=== PATIENT | male | born 1990 | race Caucasian/White ===

== ENCOUNTER 2023-12-06 08:18 | Emergency (ER) | payer BC, SELFPAY ==
--- NOTE | ~2023-12-06 | XR_ITS ---
EXAMINATION: XR ribs LT 2V DATE: 12/06/2023 08:56 INDICATION: Anterolateral left rib pain post injury TECHNIQUE: 3 views of the left ribs were obtained. COMPARISON: None FINDINGS: No rib fractures identified. Visualized portions of the lungs are clear with no airspace opacities, p ulmonary edema, pleural effusion or pneumothorax. The lateral right lung is excluded from the field-o f-view. Heart size is normal. IMPRESSION: 1. No rib fracture or acute cardiopulmonary disease. Reviewed, dictated and finalized at location A.
[2023-12-06 08:24] VITALS: BP 126/87; PULSE 75; RESP 16; TEMP 37.1; O2SAT 99
--- NOTE | 2023-12-06 08:52 | ED.GENADULT ---
HPI - General Adult General Chief complaint: Back Pain/Injury Stated complaint: Rib pain/injury Time Seen by Provider: 12/06/23 08:38 Source: patient, RN notes reviewed and old records reviewed Mode of arrival: ambulatory Limitations: no limitations History of Present Illness HPI narrative: 33 year old male who presents to [facility] care with complaints of left rib pain since attending martial arts class on Saturday and was hit in the ribs. Patient reports increased pain with deep breathing on the left rib area and with certain twisting movement. Patient reports that he has taking Ibuprofen for his discomfort.Patient reports no shortness of breath lung sounds noted all lung alvarado. MD complaint: rib pain Onset (ago): day(s) (2 days) Severity scale (1-10): 8 Treatments prior to arrival: NSAID Related Data Home Medications Medication Instructions Recorded Confirmed No Home Medications 12/06/23 12/06/23 Allergies Allergy/AdvReac Type Severity Reaction Status Date / Time No Known Allergies Allergy Verified 12/06/23 08:34 Review of Systems Review of Systems: CONSTITUTIONAL: Denies fever, chills, or sweats. EYES: Denies visual changes, redness, or discharge. ENT: Denies rhinorrhea, congestion, sore throat, or otalgia. CARDIOVASCULAR: Denies chest pain, palpitations, or edema.Reports left sided rib pain RESPIRATORY: Denies cough or dyspnea.states hurts some to take a deep breath GASTROINTESTINAL: Denies abdominal pain, nausea, vomiting, or diarrhea. GENITOURINARY: Denies dysuria or hematuria. SKIN: Denies rash or itching.small area of bruising to anterior left rib area MUSCULOSKELETAL: Denies back pain, joint pain, or myalgia..left anterior and lateral rib discomfort NEUROLOGIC: Denies headache, numbness, or weakness PSYCHIATRIC: Denies anxiety or depression. All systems reviewed & are unremarkable except as noted in HPI and below PMFSH Comments At time of signature, agree with nursing past medical, surgical, social and family history. There is no relevant family history pertinent to the presenting complaint Exam Narrative: GENERAL: Well-appearing, well-nourished, and in no acute distress. HEAD: Normocephalic, atraumatic. EYES: PERRLA and EOMI. ENT: Nares clear, no rhinorrhea or epistaxis. Mucous membranes moist. NECK: Supple.no lymphadenopathy CHEST: Clear to auscultation. No respiratory distress. lung sounds in all alvarado, reports some increased pain to left anterior rib area with deep breathing, no tachypnea,SAO2 99% on room air HEART: Regular rate and rhythm. No murmur heard. Normal peripheral pulses. ABDOMEN: Soft, nontender, nondistended, normal active bowel sounds. EXTREMITIES: Normal range of motion. No edema. SKIN: Warm, dry, no rash. small area of bruising to anterior left rib area. NEURO: No focal deficits. Alert and oriented x3. Course Course Emergency Course: Patient is aware of diagnosis, understands and agrees to treatment plan.? Anticipatory guidance given.? Patient agrees to follow-up as directed and is aware of reasons to seek care at the emergency department. Portions of this record may have been created with voice recognition software Level of Care: Express Care Visit Vital Signs Vital signs: Vital Signs Temperature 37.1 C 12/06/23 08:24 Pulse Rate 75 12/06/23 08:24 Respiratory Rate 16 12/06/23 08:24 Blood Pressure 126/87 12/06/23 08:24 Pulse Oximetry 99 12/06/23 08:24 Oxygen Delivery Room Air 12/06/23 08:24 Temperature 37.1 C 12/06/23 08:24 Pulse Rate 75 12/06/23 08:24 Respiratory Rate 16 12/06/23 08:24 Blood Pressure 126/87 12/06/23 08:24 Pulse Oximetry 99 12/06/23 08:24 Oxygen Delivery Room Air 12/06/23 08:24 Reviewed Medical Decision Making MDM Narrative Medical decision making narrative: Exam findings and imaging show no acute concerns or changes; patient is non-toxic appearing and is in no distress.? Patient is appropriate for o
== END 2023-12-06 09:39 | disposition home or self-care (01) ==
PROVIDERS: Emergency Provider Registered Nurse
DX: S20.212A Contusion of left front wall of thorax, initial encounter (principal); W50.0XXA Accidental hit or strike by another person, initial encounter; Y93.75 Activity, martial arts
CPT/HCPCS: 71100; 99213; G0463

== ENCOUNTER 2025-01-13 08:18 | Emergency (ER) | payer BC, SELFPAY ==
[2025-01-13 08:22] VITALS: BP 136/77; PULSE 55; RESP 16; TEMP 36.5; O2SAT 100
--- NOTE | 2025-01-13 08:34 | ED.EYEPROB ---
HPI - Eye Problem General Chief complaint: Eye Problems Stated complaint: Right Eye Problem Time Seen by Provider: 01/13/25 08:34 Source: patient, RN notes reviewed and old records reviewed Mode of arrival: ambulatory Limitations: no limitations History of Present Illness HPI Narrative: 34 year old male presents to [facility] care with complaints of redness to his right eye and also feels like he has something in his eye or scratched his eye. 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 Patient reports that he was carrying shingles yesterday at work and he did have safety glasses on. He states that around 6 pm last evening he noted increased redness and watering to his right eye and he took out his contacts and rinsed his right eye well with water but no improvement. He states that he has left his contacts, he continues to have discomfort and redness with feelings of irritation to his right eye. MD chief complaint: eye pain, eye redness and other (feeling of foreign body right eye) Onset (ago): day(s) (yesterday evening around 6 pm) Location: right eye Eye Symptoms: redness, foreign body sensation and other (watering) Severity scale (1-10): 6 Treatments Prior to Arrival: irrigated eye and removed contact lens Related Data Allergies Allergy/AdvReac Type Severity Reaction Status Date / Time No Known Allergies Allergy Verified 01/13/25 08:24 Review of Systems Review of Systems: CONSTITUTIONAL: Denies fever, chills, or sweats. EYES: Denies visual changes. Reports redness,, irritation, increased watering from his right eye with feeling like foreign body or scratch on eye ENT: Denies rhinorrhea, congestion, sore throat, or otalgia. CARDIOVASCULAR: Denies chest pain, palpitations, or edema. RESPIRATORY: Denies cough or dyspnea. SKIN: Denies rash or itching. NEUROLOGIC: Denies headache All systems reviewed & are unremarkable except as noted in HPI and below PMFSH Social History Social History (Updated 01/13/25 @ 10:23 by Malini Summers NP) Smoking status: Never smoker Alcohol intake: current Alcohol use details: social Substance use type: does not use Living arrangements: with family Additional occupation/education comments: construction Gender identity (if verbalized by the patient): Male Comments At time of signature, agree with nursing past medical, surgical, social and family history. There is no relevant family history pertinent to the presenting complaint Exam Narrative: GENERAL: Well-appearing, well-nourished, and in no acute distress. HEAD: Normocephalic, atraumatic. EYES: PERRLA and EOMI. Upper and lower eyelids unremarkable. No periorbital cellulitis noted. Sclera and conjunctivae injected with increased watering and discomfort to right eye ENT: Nares clear, no rhinorrhea or epistaxis. Mucous membranes moist. NECK: Supple.no lymphadenopathy CHEST: Clear to auscultation. No respiratory distress. SAO2 100% on room air HEART: Regular rate and rhythm. No murmur heard. Normal peripheral pulses. SKIN: Warm, dry, no rash. NEURO: No focal deficits. Alert and oriented x3. Course Course Emergency Course: Patient is aware of diagnosis, understands and agrees to treatment plan. Anticipatory guidance given. Patient agrees to follow-up as directed and is aware of reasons to seek care at the emergency department. Portions of this record may have been created with voice recognition software Level of Care: Express Care Visit Vital Signs Vital signs: Vital Signs Temperature 36.5 C 01/13/25 08:22 Pulse Rate 55 L 01/13/25 08:22 Respiratory Rate 16 01/13/25 08:22 Blood Pressure 136/77 01/13/25 08:22 Pulse Oximetry 100 01/13/25 08:22 Oxygen Delivery Room Air 01/13/25 08:22 Temperature 36.5 C 01/13/25 08:22 Pulse Rate 55 L 01/13/25 08:22 Respiratory Rate 16 01/13/25 08:22 Blood Pressure 136/77 01/13/25 08:22 Pulse Oximetry 100 01/13/25 08:22 Oxygen Delivery Room Air 01/13/25 08:22 Reviewed Procedures FB Removal Eye Foreign Body #1: Foreign Body Removal Date: 01/13/25 Foreign Body Removal Time: 08:40 Time Out performed: Yes Location: eye (R) Topical anesthetic used: tetracaine (0.5% 2 drops) Foreign body: other (none noted) Evidence of corneal penetration: No Technique: irrigation, cotton tip swab and other (magnification) Procedure performed under: direct visualization with magnification and other (corcoran lamp) Post-procedure medication: topical anesthetic (Tetracaine 0.5% 2 drops) Patient tolerated procedure: well Complications: other (no foreign body noted) Foreign Body Removal Narrative: right eye localized using Tetracaine 0.5% 2 drops and eye irrigated and also cotton tip applicator and magnification used to search for any foreign body in right eye with none noted. Right eye stained with Fluorescein stain and examined using corcoran lamp with abrasion at 7'oclock noted. Stain irrigated from right eye and followed with Tetracaine 0.5% 2 drops for comfort measure. Patient instructed no contact use to right eye till completion of eye drops. MDM - Eye Problem MDM Narrative Medical decision making narrative: Consideration of the following conditions may be warranted for the presenting problem, they are not final diagnoses: Bacterial conjunctivitis, allergic conjunctivitis, viral conjunctivitis, foreign body, blepharitis, chalazion, hordeolum, corneal abrasion.? Exam findings show no acute concerns or changes; patient is non-toxic appearing and is in no distress.? Patient is appropriate for outpatient treatment and follow-up. Differential Diagnosis Differential diagnosis: Likely corneal abrasion, conjunctivitis, subconjunctival hemorrhage and other (foreign body feeling right eye) Medical Records Attestation: I reviewed the patient's medical records. Critical Care Time Critical Care Time Critical Care Time: No Discharge Plan Discharge Clinical Impression: Corneal abrasion Qualifiers: Encounter type: initial encounter Laterality: right Qualified Code(s): S05.01XA - Injury of conjunctiva and corneal abrasion without foreign body, right eye, initial encounter Patient Disposition: Home Condition: Stable Instructions: Antibiotic Form, Corneal Abrasion (ED) Additional Instructions: Cold compresses to the eyes for comfort May need warm compresses to remove debris in the morning When cleaning the eyes used a washcloth in one direction then change washcloths or use a cotton ball in one direction and then his cotton balls Eyedrops as directed--may be more soothing if left in the refrigerator Do not share medicine--do not touch the eye with the medicine Tylenol or ibuprofen for pain per package instruction Avoid screen time--television, computer, tablet or phone. Also no reading or driving Follow-up with PCP or hydraulic design engineer as directed if no improvement in 48 hours Do not were contact to right eye till completion eye drops If your symptoms persist, change or worsen significantly before you can contact your personal physician then please, without delay, go to the emergency department for further evaluation. Follow-up with PCP in 7-10 days or sooner if needed Follow up with PCP soon in regards to your blood pressure which is elevated above threshold for referral. Blood pressure above 120/80 may indicate pre-hypertension.136/77 Patient Language: Irish Prescriptions: New ofloxacin 0.3 % drops See Rx Instructions .ROUTE .COMPLEX Qty: 10 0RF Rx Instructions: put 1-2 drps into affected eye(s) every 2-4 h x 2 days, then 1-2 drps 4 times/day days 3-7 Follow-up/Referrals: PHYSICIAN,MERCHANDISING STOCK ASSOCIATE [Primary Care Provider, Internal Medicine] Stand Alone Forms: Work/School Release IP Time of Disposition: 08:53 Quality Anna Coma Scale Eyes: Open Verbal: Oriented and Alert Motor: Follows Commands Anna Coma Total Score: 15
[2025-01-13] MEDS: TETRACAINE HCL 0.5% OPHTH SOLN 4 ML BTL RIGHT EYE (09:11)
[2025-01-13] MEDS: FLUORESCEIN SOD 1 MG/STRIP RIGHT EYE (09:11)
[2025-01-13] MEDS: DACRIOSE EYE IRRIGATION 118 ML BOTTLE RIGHT EYE (09:12)
== END 2025-01-13 09:13 | disposition home or self-care (01) ==
PROVIDERS: Emergency Provider Registered Nurse
DX: S05.01XA Injury of conjunctiva and corneal abrasion without foreign body, right eye, initial encounter (principal); X58.XXXA Exposure to other specified factors, initial encounter
CPT/HCPCS: 99213; A9270; G0463